=== PATIENT | male | born 1985 | race Two or more races ===

== ENCOUNTER 2021-03-20 13:45 | Inpatient (IN) | payer OTHER ==
[~2021-03-20] VITALS: Ht 170.2 cm; Wt 68.2 kg
[2021-03-20] MEDS ORDERED: ONDANSETRON HCL 4 MG TABLET PO ONE (15:45)
[2021-03-20 15:55] LABS: COVID AG,FIA SOURCE NASOPHARYNGEAL
[2021-03-20 15:59] LABS: BASOPHILS % (AUTO) 0.4 % (0.0-2.0); EOSINOPHILS % (AUTO) 0 % (1.0-6.0); HEMATOCRIT 41.2 % (41-53); HEMOGLOBIN 13.4 g/dL (13.5-17.5); LYMPHOCYTES # (AUTO) 1.3 K/uL (1.0-4.8); LYMPHOCYTES % (AUTO) 21.5 % (22.0-44.0); MEAN CORPUSCULAR HEMOGLOBIN 27.6 pg (26.0-34.0); MEAN CORPUSCULAR HGB CONC 32.7 G/dL (31.0-37.0); MEAN CORPUSCULAR VOLUME 84 fL (80-100); MONOCYTES # (AUTO) 0.5 K/uL (0.1-1.0); NEUTROPHILS % (AUTO) 69.1 % (40.0-70.0); PLATELET COUNT (AUTO) 333 K/uL (150-450); RED BLOOD CELL COUNT(AUTO) 4.88 MIL/uL (4.50-5.90); RED CELL DISTRIBUTION WIDTH 14.5 % (11.5-14.5)
[2021-03-20] MEDS ORDERED: SODIUM CHLORIDE 0.9% 1,000 ML IV ONE (16:00)
[2021-03-20 16:08] LABS: ANION GAP 4 mmol/L (8-16); CALCIUM, TOTAL 9.5 mg/dL (8.8-10.5); CARBON DIOXIDE 27 mmol/L (22-29); CHLORIDE 102 mmol/L (98-107); CREATININE 0.82 mg/dL (0.60-1.30); GLOMERULAR FILTR. RATE CALC > 60 mL/min (>60); GLUCOSE,RANDOM 116 mg/dL (70-110); POTASSIUM 4.5 mmol/L (3.5-5.1); SODIUM SERUM 133 mmol/L (136-145); UREA NITROGEN, BLOOD 15 mg/dL (7-18)
[2021-03-20 16:15] LABS: ALANINE AMINOTRANSFERASE 71 U/L (12-78); ALBUMIN 3.9 g/dL (3.4-5.0); ALKALINE PHOSPHATASE 140 U/L (46-116); ASPARTATE AMINOTRANSFERASE 45 U/L (15-37); BILIRUBIN,TOTAL 0.3 mg/dL (0.1-1.0); TOTAL PROTEIN, SERUM 8.7 g/dL (6.4-8.2)
[2021-03-20 17:00] LABS: AMPHET/METH SCREEN,URINE POSITIVE (NEGATIVE); BARBITURATE SCREEN, URINE NEGATIVE (NEGATIVE); BENZODIAZEPINES SCREEN,URINE NEGATIVE (NEGATIVE); CANNABINOID SCREEN,URINE NEGATIVE (NEGATIVE); COCAINE SCREEN,URINE NEGATIVE (NEGATIVE); METHADONE SCREEN, URINE NEGATIVE (NEGATIVE); OPIATE SCREEN,URINE NEGATIVE (NEGATIVE); PHENCYCLIDINE SCREEN,URINE NEGATIVE (NEGATIVE)
[2021-03-20] MEDS ORDERED: LOPERAMIDE HCL 2 MG CAPSULE PO PRN (17:00)
[2021-03-20] MEDS ORDERED: ACETAMINOPHEN/CODEINE 300-15 MG TABLET PO PRN (17:00)
[2021-03-20] MEDS ORDERED: MAGNESIUM SULFATE 2 GM, MVI, ADULT NO.1 WITH VIT K 10 ML, THIAMINE 100 MG, FOLIC ACID 1... IV ONE ×5 (17:00)
[2021-03-20] MEDS ORDERED: DICYCLOMINE HCL 10 MG CAPSULE PO PRN (17:00)
[2021-03-20] MEDS ORDERED: METOCLOPRAMIDE HCL 5 MG/ML 2 ML VIAL IVP PRN (17:00)
[2021-03-20 19:00] VITALS: BP 126/73
[2021-03-20] MEDS: LORazepam 2 MG/ML VIAL IVP PRN (20:19)
[2021-03-20 23:10] VITALS: BP 128/71
[2021-03-20] MEDS: TEMAZEPAM 15 MG CAPSULE PO SCH (23:25)
[2021-03-20] MEDS: HEPARIN SODIUM,PORCINE 5,000 UNITS/ML VIAL SQ SCH (23:28)
[2021-03-21 03:45] VITALS: BP 129/68
[2021-03-21 08:32] VITALS: BP 122/66
[2021-03-21] MEDS: HEPARIN SODIUM,PORCINE 5,000 UNITS/ML VIAL SQ SCH ×2 (09:20→15:46)
[2021-03-21 19:38] VITALS: BP 118/80
[2021-03-21] MEDS: TEMAZEPAM 15 MG CAPSULE PO SCH (20:56)
[2021-03-22 04:29] VITALS: BP 107/67
[2021-03-22 08:04] VITALS: BP 107/57
[2021-03-22] MEDS: HEPARIN SODIUM,PORCINE 5,000 UNITS/ML VIAL SQ SCH ×4 (08:28→23:22)
[2021-03-22] MEDS: TEMAZEPAM 15 MG CAPSULE PO SCH (19:44)
[2021-03-22 20:00] VITALS: BP_SYST 109; BP_SYST 127; BP_DIAS 55; BP_DIAS 78
[2021-03-22] MEDS: LORazepam 2 MG/ML VIAL IVP PRN (21:05)
[2021-03-23 03:55] VITALS: BP 106/62
[2021-03-23] MEDS: LORazepam 2 MG/ML VIAL IVP PRN ×2 (05:03→23:24)
[2021-03-23 07:46] VITALS: BP 109/75
[2021-03-23] MEDS: HEPARIN SODIUM,PORCINE 5,000 UNITS/ML VIAL SQ SCH ×3 (08:43→23:24)
[2021-03-23] MEDS: TEMAZEPAM 15 MG CAPSULE PO SCH (20:07)
[2021-03-23 20:35] VITALS: BP 114/62
[2021-03-24 04:15] VITALS: BP 116/60
[2021-03-24 08:04] VITALS: BP 111/57
[2021-03-24] MEDS: HEPARIN SODIUM,PORCINE 5,000 UNITS/ML VIAL SQ SCH ×3 (08:18→23:52)
[2021-03-24] MEDS: TEMAZEPAM 15 MG CAPSULE PO SCH (20:13)
[2021-03-24 20:53] VITALS: BP 123/65
[2021-03-25 04:58] VITALS: BP 129/66
[2021-03-25] MEDS: HEPARIN SODIUM,PORCINE 5,000 UNITS/ML VIAL SQ SCH (07:25)
[2021-03-25 08:25] VITALS: BP 112/58
[2021-03-25] MEDS ORDERED: MULTIVITAMINS WITH MINERALS, THERAPEUTIC TABLET PO SCH (09:00)
== END 2021-03-25 15:40 | DRG 641 ==
LOC: EMS 13:51 → 6S 17:54
PROVIDERS: ADMIT Internal Medicine; ATTEND Internal Medicine
DX: E87.1 Hypo-osmolality and hyponatremia (principal); F11.23 Opioid dependence with withdrawal; D64.9 Anemia, unspecified; Z20.822 Contact with and (suspected) exposure to COVID-19; F17.210 Nicotine dependence, cigarettes, uncomplicated
CPT/HCPCS: 80053; 85025; 99285; G0480; J1644; J2060; J3411; J3475; J3490; J7030; Q0162